=== PATIENT | female | born 1985 | race African-American/Black ===

== ENCOUNTER 2020-12-29 10:19 | Outpatient (RCR) | payer OTHER, SELFPAY ==
[2020-12-29 11:16] LABS: Beta HCG Quantitative 192.59 mIU/ML
== END 2021-03-27 23:59 | disposition home or self-care (01) ==
LOC: ANHLAB 10:19
PROVIDERS: Visit Provider Obstetrics & Gynecology
DX: O20.0 Threatened abortion (principal); O36.0190 Maternal care for anti-D [Rh] antibodies, unspecified trimester, not applicable or unspecified; Z3A.00 Weeks of gestation of pregnancy not specified
CPT/HCPCS: 36415; 84702; 86850; 86900; 86901

== ENCOUNTER 2021-11-10 14:04 | Outpatient (RCR) | payer OTHER, SELFPAY | END 2021-12-03 09:18 | disposition home or self-care (01) | LOC: ANHOBOP 14:04 | PROVIDERS: Visit Provider Obstetrics & Gynecology | DX: O00.90 Unspecified ectopic pregnancy without intrauterine pregnancy (principal); Z3A.00 Weeks of gestation of pregnancy not specified | CPT/HCPCS: 36415; 84702 ==

== ENCOUNTER 2021-11-13 14:39 | Outpatient (CLI) | payer OTHER, SELFPAY | END 2021-11-13 14:40 | disposition home or self-care (01) | LOC: ANHLAB 14:42 | PROVIDERS: Visit Provider Obstetrics & Gynecology | DX: O00.90 Unspecified ectopic pregnancy without intrauterine pregnancy (principal) | CPT/HCPCS: 36415; 84702 ==

== ENCOUNTER 2023-05-30 13:49 | Outpatient (CLI) | payer OTHER, SELFPAY ==
[2023-05-30 14:07] VITALS: PULSE 130; O2SAT 99
[2023-05-30 14:12] VITALS: PULSE 111; O2SAT 100
[2023-05-30 14:15] VITALS: BP 139/84; PULSE 115
[2023-05-30 14:30] VITALS: BP 140/79; PULSE 110
[2023-05-30 14:59] VITALS: BP 140/79; PULSE 95
--- NOTE | 2023-05-30 15:20 | PC.NURSE ---
Dr. Vaz notified of NST and negative ROM plus results.
== END 2023-05-30 14:50 | disposition home or self-care (01) ==
LOC: ANHOBOP 13:54 → ANHOBPP 13:57
PROVIDERS: Visit Provider Obstetrics & Gynecology
DX: O42.90 Premature rupture of membranes, unspecified as to length of time between rupture and onset of labor, unspecified weeks of gestation (principal); Z3A.00 Weeks of gestation of pregnancy not specified
CPT/HCPCS: 59025; 84112; 99199

== ENCOUNTER 2023-07-14 14:10 | Outpatient (RCR) | payer OTHER, SELFPAY ==
[2023-07-14 15:06] VITALS: BP 131/77; PULSE 101
== END 2023-09-10 15:35 | disposition home or self-care (01) ==
LOC: ANHOBOP 14:10
PROVIDERS: Visit Provider Obstetrics & Gynecology
DX: O36.8130 Decreased fetal movements, third trimester, not applicable or unspecified (principal); Z3A.29 29 weeks gestation of pregnancy
CPT/HCPCS: 59025

== ENCOUNTER 2023-09-05 13:26 | Outpatient (CLI) | payer OTHER, SELFPAY ==
[2023-09-05 13:50] LABS: Hematocrit 37.8 % (37.0-47.0); Hemoglobin 12.3 g/dL (12.0-15.0); Mean Corpuscular HGB Conc 32.5 g/dl (32-36); Mean Corpuscular Hemoglobin 28.5 pg (26-34); Mean Corpuscular Volume 87.5 fl (80-100); Mean Platelet Volume 10.8 fl (7.4-10.4); Platelet Count Result 267 k/mm3 (150-375); Red Blood Count 4.32 M/mm3 (4.2-5.4); Red Cell Distribution Width 13.2 % (11.5-14.5); White Blood Count 6.2 K/mm3 (4.5-10.0)
[2023-09-08 12:36] LABS: Rapid Plasma Reagin Non-Reactive (NonReactive)
== END 2023-09-05 13:27 | disposition home or self-care (01) ==
LOC: ANHLAB 13:28
PROVIDERS: Visit Provider Obstetrics & Gynecology
DX: Z01.818 Encounter for other preprocedural examination (principal)
CPT/HCPCS: 36415; 85027; 86592; 86850; 86900; 86901

== ENCOUNTER 2023-09-07 05:09 | Inpatient (IN) | payer OTHER, SELFPAY ==
[2023-09-07] VITALS (62 sets, daily range): BP systolic 72–132; BP diastolic 38–87; PULSE 58–109; RESP 14–20; TEMP 36.7–36.8; O2SAT 100; BMI 42.1
[2023-09-07] MEDS: ACETAMINOPHEN 500 MG TABLET 1000 MG PO (06:30)
[2023-09-07] MEDS: LACTATED RINGERS 1,000 ML 125 ML IV CONT ×2 (06:32→07:31)
--- NOTE | 2023-09-07 06:40 | LDADM ---
This patient, Prema Dietz, was admitted to Labor/Delivery/Recovery 119 on 09/07/23 at 05:09. Plans for primary section. Patient/family oriented to hospital policies and general routines including ID bracelet, bed and alarms, visiting hours, pain management, procedures, bathroom and other care routines, personal items, smoking policy, room service/diet and guest tray routines, infant security routines, and visiting hours. Patient/Family are encouraged to report perceived risks to care and to ask questions if they do not understand what they are told or what they should do. See OBIX for further documentation.
--- NOTE | 2023-09-07 07:02 | P.PNAN_ITS ---
Anes - Initial Pre Proc Eval Procedure: Operation Date: 09/07/23 07:30 Proposed Procedures p Section - Carisa Vaz MD Date/Time: 09/07/23 07:02 Surgeon: Carisa Vaz MD Pre Op Diagnosis: C Section Patient Data Age: 38 Gender: F Height: 1.7 m Weight: 122 kg Last Vital Signs Pulse 84 09/07/23 07:01 BP 115/65 09/07/23 07:01 O2 Del Method Room Air 09/07/23 06:34 Allergies Allergy/AdvReac Type Severity Reaction Status Date / Time naproxen AdvReac Nausea Verified 08/20/23 15:43 Home Medications Medication Instructions Recorded Confirmed Type aspirin 81 mg tablet 81 mg PO DAILY 08/20/23 09/07/23 History cholecalciferol (vitamin D3) 125 125 mcg PO DAILY 08/20/23 09/07/23 History mcg (5,000 unit) tablet prenat.vits,alicia,[id number] 1 tablet PO DAILY 08/20/23 09/07/23 History Patient hx anesthesia problems: none Family hx anesthesia problems: none Results Review: All pre-operative results and documents have been reviewed as part of the pre- operative evaluation. [facility] Family History Family History Grandparent Breast cancer Social History Social History Smoking status: Never smoker Substance use: never Do You Feel Safe in your Home?: Yes Lack of Transportation: No Lack of Food: Never True Current Housing: I Have Housing Concerned About Future Housing: No Difficulty Paying Gas/Electric Bills: No Difficulty Paying for Meds: No Currently Unemployed: No Education: Master's Degree or Higher Difficulty w/ Childcare or Family Care: No Spiritual care concerns: No Anes - Eval Final PreProcedure Day of Procedure 09/07/23 07:02 Patient weight: morbidly obese Heart: regular rate and rhythm Lungs: clear to auscultation Airway: Mallampati scale class 1 Neurological: alert and oriented Last oral intake: >/= 8 hours ASA classification: III Emergent: no Anesthetic plan: proceed Anesthesia type and monitoring: regional spinal and standard monitoring Results Review: All pre-operative results and documents have been reviewed as part of the pre- operative evaluation. Informed Consent: The patient's anesthetic plan and its attendant risks and benefits were discussed with the patient/family/POA. Questions were solicited and answers provided to the satisfaction of the patient/family/POA.
[2023-09-07] MEDS: FAMOTIDINE 20 MG/2 ML VIAL IV PUSH (08:07)
[2023-09-07] MEDS: ONDANSETRON INJ 4 MG/2 ML VIAL IV PUSH (08:07)
[2023-09-07] MEDS: ceFAZolin 3 GM/D5W 100 ML 100 ML IVPB (08:10)
--- NOTE | 2023-09-07 08:11 | P.HP_ITS ---
H&P: [facility] History of Present Illness Date/Time: 09/07/23 08:11 Chief Complaint: delivery Narrative: 38-year-old female 37 weeks with history of transmural myomectomy. To perform a elective early . She has no complaints. She denies any contractions, loss of fluid, vaginal bleeding. She denies any headache blurry vision. She denies any nausea, vomiting, fever, chills. She understands the procedure. Has been explained to her. She understands the risk and that injuries may occur the result hospitalization, more surgery, and severe illness. Review of Systems Review of Systems: All systems reviewed & are unremarkable except as noted in HPI and below Constitutional: Constitutional: Denies chills, Denies fatigue, Denies fever(s) and Denies weakness Eyes: Eyes: Denies blurry vision, Denies change in vision, Denies loss of peripheral vision, Denies loss of vision, Denies other visual disturbances and Denies eye pain ENT: Denies vertigo, Denies dizziness, Denies hearing loss, Denies mouth pain, Denies nasal obstruction, Denies neck mass and Denies neck pain Cardiovascular: Cardiovascular: Denies chest pain, Denies diaphoresis, Denies syncope, Denies leg edema and Denies dyspnea Respiratory: Respiratory: Denies chest congestion, Denies cough, Denies hem optysis, Denies dyspnea and Denies wheezing Gastrointestinal: Gastrointestinal: Denies abdominal pain, Denies constipation, Denies diarrhea, Denies nausea and Denies vomiting Genitourinary: Genitourinary: Denies hematuria, Denies change in libido, Denies nocturia, Denies genital lesions, Denies flank pain and Denies urinary urgency Musculoskeletal: Musculoskeletal: Denies abnormal gait, Denies back pain, Denies myalgias, Denies arthralgias, Denies joint swelling, Denies muscle weakness and Denies neck pain Integumentary/Breasts: Skin/Breast: Denies swelling, Denies breast pain, Denies breast mass, Denies dry skin, Denies nipple discharge, Denies unusual bruising and Denies jaundice Neurologic: Denies Neuro-related abnormal movements, Denies Abnormal speech present, Denies abnormal gait, Denies behavioral changes, Denies confusion, Denies vertigo, Denies dizziness, Denies syncope, Denies loss of vision, Denies memory loss, Denies convulsions and Denies weakness Psychiatric: Psychiatric: Denies abnormal sleep pattern, Denies behavioral changes, Denies change in libido, Denies confusion, Denies depression, Denies anhedonia and Denies memory loss Endocrine: Endocrine: Reports no additional endocrine complaints, Denies change in libido and Denies fatigue Hematologic/Lymphatic: Hematologic/Lymphatic: Reports no additional hematologic/lymphatic complaints Allergic/Immunologic: Allergic/Immunologic: Reports no additional allergic/immunologic complaints and Denies wheezing PMF Family History Family History Grandparent Breast cancer Social History Social History Smoking status: Never smoker Substance use: never Do You Feel Safe in your Home?: Yes Lack of Transportation: No Lack of Food: Never True Current Housing: I Have Housing Concerned About Future Housing: No Difficulty Paying Gas/Electric Bills: No Difficulty Paying for Meds: No Currently Unemployed: No Education: Master's Degree or Higher Difficulty w/ Childcare or Family Care: No Spiritual care concerns: No Meds Home Medications and Allergies Home Medications Medication Instructions Recorded Confirmed Type aspirin 81 mg tablet 81 mg PO DAILY 08/20/23 09/07/23 History cholecalciferol (vitamin D3) 125 125 mcg PO DAILY 08/20/23 09/07/23 History mcg (5,000 unit) tablet prenat.vits,alicia,ooe-[id number]-koikg 1 tablet PO DAILY 08/20/23 09/07/23 History Allergies Allergy/AdvReac Type Severity Reaction Status Date / Time naproxen AdvReac Nausea Verified 08/20/23 15:43 Vital Signs Vital Signs - 24 hr 09/07/23 05:40 09/07/23 05:46 09/07/23 06:01 Pulse Rate 103 H 88 90 Blood Pressure 121/72 114/65 119/71 Oxygen Delivery 09/07/23 06:16 09/07/23 06:31 09/07/23 06:46 Pulse Rate 87 85 85 Blood Pressure 111/66 106/66 117/69 Oxygen Delivery 09/07/23 07:01 09/07/23 07:16 09/07/23 06:34 Pulse Rate 84 89 Blood Pressure 115/65 117/64 Oxygen Delivery Room Air Exam Const: General: cooperative, healthy appearing, comfortable and no acute distress Orientation/consciousness: oriented to person, oriented to place and oriented to time HENMT: Head: normal to inspection Ears: external ears normal Face/Nose/Sinus: Normal external nose present and normal facial exam Face and sinus: normal facial exam Eyes: General: appearance normal, both eyes and all related structures Neck: Neck: normal visual inspection, trachea midline and supple Resp: Auscultation: clear to auscultation bilaterally, no crackles, no rales, no rhonchi and no wheezes Cardio: Rate: regular rate Rhythm: regular rhythm Heart sounds: no click, no murmurs and no rubs GI: GI Palp: No abdominal tenderness, No Soft to palpation, No Tenderness to palpation present (GI) and No Palpable mass present Auscultation: normal bowel sounds Skin: General skin exam: normal color and no rashes or lesions noted Neuro: General: oriented to person, oriented to place and oriented to time Extrem: General: normal to inspection, no joint enlargement, no clubbing, cyanosis or edema, no pedal edema and no calf tenderness Psych: Appearance: grossly normal Mental Status: mental status grossly normal Speech and movement: Normal speech and movement present Assessment and Plan Assessment and plan (1) H/O myomectomy: Code(s): Z98.890 - Other specified postprocedural states Status: Acute (2) Term : Code(s): Z34.90 - Encounter for supervision of normal , unspecified, unspecified trimester Status: Acute Plan this patient is a 38-year-old female who presents for delivery. she has a history of transmural myomectomy. She understands risks, benefits, and alternatives. This completed the informed consent process as read proceed. She is 37 weeks gestation.
--- NOTE | 2023-09-07 08:14 | WPDHPUPDATE1 ---
History and Physical Update Update Date/Time: 09/07/23 08:14 History and Physical has been reviewed, including an updated exam of the patient. There are NO changes in the patient's condition. Risks, benefits, and alternatives have been discussed and questions answered. Patient agrees to proceed with procedure.
--- NOTE | 2023-09-07 09:09 | P.PCNOB_ITS ---
OB - Delivery Note Procedure Delivery date: 09/07/23 Pre-op diagnosis: Other ( Transmural myomectomy) Post-op Diagnosis: Same Procedure Performed: Primary Surgeon: Carisa Vaz MD Anesthesia type: Spinal Description of Procedure/Findings: The patient was taken the operating room.? She was prepped and draped in dorsal supine position with a leftward tilt.? This was done after spinal anesthetic was applied.? A low-transverse skin incision was made and carried down till of the fascia with the knife.? The fascial incision was made with the knife.? The fascial incision was extended laterally with Pedraza scissors.? The fascia was tented upward superiorly and inferiorly the rectus muscles were dissected off bluntly.? The rectus muscles were the midline.? The preperitoneal fat and peritoneum were dissected open bluntly at the superior aspect of the rectus muscles.? The peritoneal incision was extended superior and inferior with good position of bladder.? The uterine incision was made with a scalpel down to the level of the amniotic cavity.? The amniotic cavity was entered bluntly.? The infant was delivered.? The cord was clamped and cut and the infant was handed off to waiting pediatric staff.? Cord bloods were obtained.? The placenta was removed manually.? The uterus was exteriorized.? The uterus was cleared of all clots, debris and membranes.? The uterus was closed in 0 Vicryl running lock fashion.? An imbricating over a was placed along the incision line as well.? The uterus was returned to the abdomen.? The gutters were cleared of all clots and debris.? The fascia was closed with 0 Vicryl running fashion.? The subcutaneous tissue was irrigated pinpoint bleeders were cauterized.? The skin was closed with subcuticular absorbable anabel.? The skin incision line was covered with glue.? The patient tolerated the procedure well.? She has taken recovery room in stable condition.? Sponge lap and needle counts were correct x2.? [place] Baby Weeks of gestation at delivery: 37
[2023-09-07] MEDS: MORPHINE SULFATE INJ (*CRX) 10 MG/ML AMP 3 MG IV PUSH (10:16)
[2023-09-07] MEDS: OXYTOCIN 30 UNITS/NS 500 ML 30 UNITS/500 ML BAG 125 UNITS IV CONT (10:31)
--- NOTE | 2023-09-07 11:55 | OBPPTRN ---
Patient transferred to post room #286 via stretcher. Support person present. Oriented to unit, room, information board, rooming in, admission packet and security measures. Patient verbalizes understanding. Baby and FOB accompanied mom
--- NOTE | 2023-09-07 12:52 | PC.NURSE ---
Addendum entered by Sade Navarro RN 09/07/23 12:55: Reviewed with parents typical behavior in the first 24 hours and what to expect, how to encourage , protecting the milk supply with hand expression, and other feeding options with a spoon or syringe. Discussed responsive feeding watching for early feeding cues. Parents voiced understanding of the education. Original Note: [id number] Introductions were made, then consulted with patient to assess needs related to . Discussed with mother her?plans to feed?her infant, the?experience so far with two sessions downstairs with no pain. Encouraged understanding of the benefits of skin to skin (demonstrating unwrapping and placing upright on her chest), stimulating with massage touch, changing positions to encourage wakefulness, how to watch for early feeding cues, responsive feeding, feeding on demand (aiming for 8-12 times in 24 hours, about every 2-3 hours), milk production, hand expression (colostrum is expressed), building/maintaining a milk supply, duration of feeding, signs of adequate intake/output and how to record on the feeding sheet. Mother works well with her infant with encouragement and education. Reviewed good handwashing when or touching the breast/nipples to prevent infection. Mother voiced understanding of skin to skin, stimulating with massage touch, responsive feedings, hand expressed colostrum, talking to infant to encourage if it has been 2 -2.5 hours since the start of the last , to call if does not latch, or if there is discomfort with . Resources used for education were facilitated with the visual educational handouts/ tool/mom and baby guide.Resources provided for inpatient and outpatient services with the feeding sheet, mom/baby guide and name written on the communication board. Mother voiced understanding of information and will call if there is a request for assistance.
[2023-09-07] MEDS: KETOROLAC 15 MG/ML VIAL (*BKC) IV PUSH ×2 (13:26→21:29)
[2023-09-07] MEDS: ACETAMINOPHEN 325 MG TABLET 650 MG PO ×2 (13:26→21:28)
[2023-09-07] MEDS: SIMETHICONE 80 MG TAB.CHEW PO ×2 (13:27→16:31)
[2023-09-07] MEDS: DEXTROSE 5%/0.45% SOD CHL 1,000 ML 125 ML IV CONT ×2 (15:09→21:36)
[2023-09-07] MEDS: POLYSACCHARIDE IRON COMPLEX 150 MG CAPSULE PO (16:31)
[2023-09-07] MEDS: DOCUSATE SODIUM 100 MG CAPSULE PO (16:31)
[2023-09-08 00:04] VITALS: BP 99/60; PULSE 80; RESP 18; TEMP 36.5; O2SAT 100
[2023-09-08 04:54] LABS: Basophils Percent Auto 0.4 % (0.2-1.2); Eosinophils Absolute Auto 0.1 K/mm3 (0-0.3); Eosinophils Percent Auto 1.8 % (0-4.4); Hematocrit 28.4 % (37.0-47.0); Hemoglobin 9.3 g/dL (12.0-15.0); Immature Granulocyte Absolute 0.02 K/mm3 (0.00-0.031); Immature Granulocyte Percent A 0.3 % (0-0.5); Lymphocytes Absolute Auto 0.95 K/mm3 (0.9-3.2); Lymphocytes Percent Auto 14.2 % (18.3-44.2); Mean Corpuscular HGB Conc 32.7 g/dl (32-36); Mean Corpuscular Hemoglobin 28.3 pg (26-34); Mean Corpuscular Volume 86.3 fl (80-100); Mean Platelet Volume 11.2 fl (7.4-10.4); Monocytes Absolute Auto 0.5 K/mm3 (0.1-0.6); Monocytes Percent Auto 6.7 % (2.6-8.5); Neutrophils Absolute Auto 5.1 K/mm3 (1.3-6.7); Neutrophils Percent Auto 76.6 % (45.5-73.1); Platelet Count Result 204 k/mm3 (150-375); Red Blood Count 3.29 M/mm3 (4.2-5.4); Red Cell Distribution Width 13.4 % (11.5-14.5); White Blood Count 6.7 K/mm3 (4.5-10.0)
[2023-09-08] MEDS: SIMETHICONE 80 MG TAB.CHEW PO ×3 (07:34→16:42)
[2023-09-08] MEDS: IBUPROFEN 600 MG TABLET PO ×3 (07:34→23:25)
[2023-09-08] MEDS: DOCUSATE SODIUM 100 MG CAPSULE PO ×2 (07:34→16:42)
[2023-09-08] MEDS: POLYSACCHARIDE IRON COMPLEX 150 MG CAPSULE PO ×2 (07:34→16:42)
[2023-09-08] MEDS: MULTIVIT/MIN/PREN/FOL AC/IRON TABLET 1 TAB PO (07:34)
[2023-09-08] MEDS: ACETAMINOPHEN 325 MG TABLET 650 MG PO ×3 (07:34→23:24)
[2023-09-08 07:45] VITALS: BP 114/67; PULSE 92; RESP 16; TEMP 37.2; O2SAT 100
--- NOTE | 2023-09-08 12:17 | WPDANLDPN2 ---
Anes-Prog Note L&D Date/Time: 09/08/23 12:17 Comfortable throughout: section Neuraxial method: spinal Epidural/Spinal procedure site: clean & non-tender Neuro status: Neuro function grossly intact. Cardiovascular status: normal Respiratory status: normal Airway patency: baseline Mental status: baseline Post-Op hydration status: normal Vital Signs: Last Vital Signs Temp 37.2 C 09/08/23 07:45 Pulse 92 09/08/23 07:45 Resp 16 09/08/23 07:45 BP 114/67 09/08/23 07:45 Pulse Ox 100 09/08/23 07:45 O2 Del Method Room Air 09/08/23 08:33 Pain score (VAS): 2/10 I/O: Intake & Output 09/07/23 09/08/23 09/08/23 23:59 07:59 15:59 Intake Total 1106.3 2000 Output Total 225 1550 600 Balance 881.3 450 -600 Post-procedural complaints: none Patient feedback: Patient satisfied with anesthetic care.
--- NOTE | 2023-09-08 12:18 | WPDANLDNPN2 ---
Anes-Prog Note L&D-Neuraxial Date/Time: 09/08/23 12:18 Neuraxial medications: intrathecal PF morphine Opiod-related complaints: none Patient feedback: Patient satisfied with post-operative pain management.
--- NOTE | 2023-09-08 15:06 | PC.NURSE ---
[id number] Consulted with patient to assess needs related to . Discussed with mother her successes, concerns and any questions she has. We reviewed working with the , supporting breast, protecting her nipples with an optimal deep latch, good positioning, and good hand washing. Encouraged understanding the benefits of skin to skin, responding to feeding cues, frequencies of feeding 8-12 times in 24 hours (approximately 2-3 hours), duration of feedings, milk production, intake/output feeding sheet and signs of adequate intake encouraging swallowing at the breast. Reviewed positioning and alignment, supporting breast, off-centered (asymmetrical latch) and leading with the chin with big, open, wide gape. Infant latched optimally to the left, then right breast in football position. Education given to the mother of how to visualize the suckling (with good rocking jaw motion) swallows (dropping of the lower jaw) and how to listen for drinking at the breast (the ka sound) and infant demonstrated. The was able to maintain latch without discomfort to mother. Nipple care reviewed with optimal latch, good positioning and using clean hands when touching her breast. Resources used to facilitate learning were used from the visual handouts/ tool. Parents voiced understanding of the education shared, to call for assistance if the does not latch or if there is discomfort with . Reported to the Primary RN.
--- NOTE | 2023-09-08 19:00 | PC.NURSE ---
1900- Patient called RN and requested a bottle. Patient states that baby has not voided other than 1 time today and she was concerned that baby has not been waking to latch. This RN attempted to assist with latching but baby would fall asleep at the breast. This RN and mother discussed feeding options and mother chose to supplement with formula and pump to stimulate nipples. This RN discussed pumping with each feeding if baby does not latch as well as protecting milk supply. RN educated about bottles and provided and educated on pump and parts. RN sized nipples for flange and discussed milk storage. Mother would like to continue to attempt latching but if unsuccessful will use formula supplementation.
[2023-09-08 19:14] VITALS: BP 111/62; PULSE 95; RESP 20; TEMP 37.1; O2SAT 98
[2023-09-09 07:20] VITALS: BP 113/75; PULSE 95; RESP 16; TEMP 37.1; O2SAT 99
[2023-09-09] MEDS: ACETAMINOPHEN 325 MG TABLET 650 MG PO (07:20)
[2023-09-09] MEDS: MULTIVIT/MIN/PREN/FOL AC/IRON TABLET 1 TAB PO (07:20)
[2023-09-09] MEDS: IBUPROFEN 600 MG TABLET PO (07:20)
[2023-09-09] MEDS: DOCUSATE SODIUM 100 MG CAPSULE PO (07:20)
[2023-09-09] MEDS: SIMETHICONE 80 MG TAB.CHEW PO (07:21)
[2023-09-09] MEDS: POLYSACCHARIDE IRON COMPLEX 150 MG CAPSULE PO (07:21)
--- NOTE | 2023-09-09 07:34 | PM.OBPNVD ---
OB - PN: Subj Subjective Date/time seen: 09/09/23 07:34 Interval history: pp day 2, from section doing well pain managed requests d/c home flatus present OB - PN: Obj Data Labs 09/08/23 04:09 OB - PN A/P Plan day: 2 Plan: routine care and discharge home Time Spent With Patient Time: Total time spent is greater than 50% in coordination of care (as documented) at patient's floor/unit and/or counseling patient: Review of Systems Review of Systems: All systems reviewed & are unremarkable except as noted in HPI and below Exam Const: General: cooperative Resp: Effort & Inspection: normal respiratory effort Cardio: Rate: regular rate GI: Other: incision cdi Back/Spine/Pelvis: Back: no CVA tenderness Skin: General skin exam: normal color Neuro: General: patient oriented x3 Extrem: Right lower extremity: normal to inspection Left lower extremity: normal to inspection
--- NOTE | 2023-09-09 07:39 | PM.OBDSVD ---
DS: Admitting Diagnosis Discharge Date 09/06/23 Admitting Diagnosis section DS: Discharge Diagnosis Discharge Diagnosis (1) Delivery by section: Status: Acute OB - DS: Summary OB Procedures : None OB Procedures Intrapartum: hysterectomy OB Procedures: : None Peripartum Data Procedures: Procedures Operation Date: 09/07/23 07:30 Actual Procedure Side Surgeon p Section Not Applicable Carisa Vaz MD Time Spent with Patient Time attestation: Total time spent providing and/or coordinating discharge services: Discharge Plan Discharge Attending physician on discharge: Carisa Vaz Discharging Clinician: Zari Fontana Patient Disposition: Home, Self-Care Activity: pelvic rest Diet: regular Patient Instructions: Antibiotic Form Stand Alone Forms: General Discharge Information Follow-up/Referrals: Carisa Vaz MD [Physician] - 1 Week Discharge Medications: New hydrocodone-acetaminophen 5-325 mg Tablet 1 tablet PO Q3H PRN (Reason: Breakthrough Pain Rated 4-6) Qty: 25 0RF Continued #2 Tablet 1 tablet PO DAILY Discontinued Adult Low Dose Aspirin 81 mg Tablet 81 mg PO DAILY cholecalciferol (vitamin D3) 125 mcg (5,000 unit) Tablet 125 mcg PO DAILY Date of admission: 09/07/23 05:09 Primary Care Provider: PHYSICIAN,CONTINUOUS CONVEYOR SCREEN DRIER Admitting Provider: Carisa Vaz Attending physician on admission: Carisa Vaz Condition: Stable
--- NOTE | 2023-09-09 12:53 | PC.NURSE ---
[id number] Consulted with mother concerning needs and she shared her ability to independently latch optimally without pain, however; became anxious last night about infant getting enough and initiated pumping along with formula supplementation. Mother is feeding appropriately for growth of and understands stimulating infant to eat if needed. Infant has had appropriate feedings in the last 24 hours meets the outcomes for weight, output, blood sugar and jaundice at this time. Reinforced understanding of milk production, transition of milk, signs of adequate intake, transition of stool, prevention/relief of engorgement, plugged ducts, mastitis, responsive watching for feeding cues, the different methods of stimulating to breastfeed 1-3 hours after the start of the last feeding, community resources, and when to call a provider using the resource of the feeding sheet along with the mom and baby guide.
--- NOTE | 2023-09-10 11:15 | PM.OBDSVD ---
DS: Admitting Diagnosis Discharge Date 09/09/23 Admitting Diagnosis section OB - DS: Summary OB Procedures : None OB Procedures Intrapartum: OB Procedures: : None Peripartum Data Procedures: Procedures Operation Date: 09/07/23 07:30 Actual Procedure Side Surgeon p Section Not Applicable Carisa Vaz MD Time Spent with Patient Time attestation: Total time spent providing and/or coordinating discharge services: Discharge Plan Discharge Attending physician on discharge: Carisa Vaz Consulting providers: Zari Fontana; Kelton Herrera; Brian Beltran Discharging Clinician: Zari Fontana Patient Disposition: Home, Self-Care Activity: pelvic rest Diet: regular Discharge Instructions: Education: Mom and Baby Guide Given to: Mother Follow-Up: Call your delivering provider's office for an appointment to be seen in: 1 Week Mom and baby [facility] for the follow-up appointment. Appointment Date/Time: September 11, 2023 at 11:00 am What to expect at your follow-up visit: Blood Pressure Check Physical Assessment Call [phone] if you are unable to keep your appointment time. BREAST CARE: * Wear a snug supportive bra. * For engorgement discomfort: Breast Feeding: * Apply warm moist washcloths * Express milk as needed to relieve engorgement * Wear loose clothing Bottle Feeding: * May apply ice packs * For sore nipples: * Identify correct latch-on * Apply warm moist washcloths before and after nursing * Air dry nipples after nursing * May apply Lansinoh cream to nipples ABDOMINAL INCISION: * Allow incision to air dry * Do NOT use lotions for powders on your incision * When showering, allow soap and water to run over the incision, but do not wash incision PERINEAL CARE: * Until bleeding stops, use your jan bottle after urinating * Change your pad frequently throughout the day * You may take sitz baths several times a day (fill your bathtub with warm water and soak for 20 minutes.) Do NOT bathe in the water * No tub baths until seen by your physician - You may shower ACTIVITY: * Rest as much as possible. * Do not exercise or lift anything heavier than your baby (such as laundry or other children.) * Avoid stairs or driving as much as possible. * Do not put anything into the vagina. No douching, tampons, or sexual activity until seen by physician. NOTIFY PHYSICIAN IF YOU HAVE ANY QUESTIONS OR IF ANY OF THE FOLLOWING SYMPTOMS OCCUR: * If your episiotomy or incision becomes red, swollen, or more painful than what you have experienced in the hospital. * If your vaginal bleeding becomes foul smelling. * If your vaginal bleeding becomes more heavy than a period or if your bleeding changes from pink to bright red. However, you may pass an occasional walnut-sized clot once or twice for the first week . * If you experience a sharp, shooting pain in you calves. * If you discover a hard, reddened area on your breast or if you experience flu-like symptoms. DIET: * Eat regular, well-balanced meals. * Drink plenty of fluids daily. If , drink to thirst. Patient Instructions: Antibiotic Form Stand Alone Forms: General Discharge Information Follow-up/Referrals: Carisa Vaz MD [Physician] - 1 Week Discharge Medications: New hydrocodone-acetaminophen 5-325 mg Tablet 1 tablet PO Q3H PRN (Reason: Breakthrough Pain Rated 4-6) Qty: 25 0RF Continued prenat.vits,alicia,tzg-qotq-fpueu Tablet 1 tablet PO DAILY Discontinued Adult Low Dose Aspirin 81 mg Tablet 81 mg PO DAILY cholecalciferol (vitamin D3) 125 mcg (5,000 unit) Tablet 125 mcg PO DAILY Date of admission: 09/07/23 05:09 Primary Care Provider: PHYSICIAN,BILLBOARD MECHANIC Admitting Provider: Carisa Vaz Attending physician on admission: Carisa Vaz Condition: Stable
[2023-09-11 11:20] VITALS: BP 140/80; PULSE 92; RESP 16; TEMP 36.6; O2SAT 100
== END 2023-09-09 12:30 | disposition home or self-care (01) | DRG 788 ==
LOC: ANHLDR 05:16 → ANHOB2 12:01
PROVIDERS: Admitting Provider Obstetrics & Gynecology; Visit Provider Obstetrics & Gynecology
PROC: 10D00Z1 Extraction of Products of Conception, Low, Open Approach (ICD-10-PCS; CPT 59514; principal; 2023-09-07 07:30)
DX: O69.81X0 Labor and delivery complicated by cord around neck, without compression, not applicable or unspecified (principal); Z37.0 Single live birth; Z3A.37 37 weeks gestation of pregnancy; Z98.890 Other specified postprocedural states
CPT/HCPCS: 36415; 85025; 85027; 86592; 86850; 86900; 86901; A9270; J0690; J1885; J2270; J2274; J2405; J2590; J7120